=== PATIENT | female | born 1990 | race Caucasian/White ===

== ENCOUNTER 2018-11-23 16:27 | Emergency (ER) | payer MEDICAID ==
[~2018-11-23] VITALS: Ht 170.2 cm; Wt 59.4 kg
[2018-11-23 16:46] VITALS: BP 126/87
--- NOTE | 2018-11-23 17:04 | NUR ---
TO [facility] FROM LOBBY. ANDREW.
[2018-11-23] MEDS ORDERED: ONDANSETRON ODT 4 MG ONE (17:21)
[2018-11-23] MEDS ORDERED: PLEASE ENTER ALLERGIES MC SCH (17:30)
[2018-11-23] MEDS ORDERED: ONDANSETRON ODT 4 MG PO ONE (17:30)
== END 2018-11-23 17:32 | disposition home or self-care (01) ==
LOC: ED 17:20
DX: L03.311 Cellulitis of abdominal wall (principal)
CPT/HCPCS: 99283; Q0162